=== PATIENT | female | born 1990 | race Hispanic/Latino ===

== ENCOUNTER 2017-03-29 15:31 | Emergency (ER) | payer BC, OTHER ==
[2017-03-29 11:35] VITALS: BMI 38.7
--- NOTE | 2017-03-29 17:04 | OBHP ---
Datetime: 03/29/2017 16:59 IP Adm Impression: , intrauterine ; No Active Labor IP Admit Plan: Observation/Evaluation; Discharge home Admit Comment, IP Provider: The patient is a 26-year-old 1 para 0 estimated due date 017 estimated gestational age 31 weeks patient presents to [facility] patient states she had blood in her urine and she passed a kidney stone. Patient states that similar [facility] was instructed to follow [facility] urolog[facility]. Patient states that appointment today and while voiding she feels she passed a stone ronnell uld call the urologist was referred to the hospital. Patient denies any pain and uterine cramps any v aginal bleeding patient states she feels well she reports good movement no leakage of fluid Past medical history none Past surgical history none Allergic to Demerol and morphine Social history denies alcohol tobacco use care by Dr. Montero Review of systems patient denies headache chest pain shortness of breath palpitations nausea vomit ing diarrhea vaginal bleeding. Cold intolerance easy bruisability musculoskeletal or neurological com plaints Vital signs stable afebrile Physical exam see notes Intrauterine at 31 weeks Status post passage of kidney stone Patient advised to follow-up with Dr. Montero this week Patient advised to reschedule urology appointment labor precautions provided Pelvic Type - PN: Adequate Extremities - PN: Normal Abdomen - PN: Normal Back - PN: Normal Breast - PN: Normal Lungs - PN: Normal Heart - PN: Normal Thyroid - PN: Normal Neurologic - PN: Normal HEENT - PN: Normal General - PN: Normal FHR - Baseline A Provider: 145 Gestation - Est Wks by US: 31.0 Pool Provider: Negative Vital Signs Provider: Reviewed IP Chief Complaint: Maternal discomfort; Other NICHD Accel Fetus A IP Provider: 10X10 FHR Category Provider Fetus A: Category I NICHD Decel Fetus A IP Provider: None Dilatation, Provider: 0 Effacement, Provider: 0 Station, Provider: 0 Genitourinary Exam: Normal DTRs - PN: Normal
[2017-03-29 21:44] VITALS: BP 102/60; PULSE 74
== END 2017-03-29 17:44 | disposition home or self-care (01) ==
LOC: H.EROB2 15:31 → H.EROB 16:11 → H.EROB2 17:44
DX: O99.89 Other specified diseases and conditions complicating pregnancy, childbirth and the puerperium (principal); R31.9 Hematuria, unspecified; Z87.442 Personal history of urinary calculi; Z3A.31 31 weeks gestation of pregnancy

== ENCOUNTER 2017-04-22 21:06 | Emergency (ER) | payer BC, OTHER ==
[2017-04-19 18:09] VITALS: BMI 38.9
[2017-04-22 23:07] LABS: RBC URINE 11 /hpf (0-3); URINE BILIRUBIN NEGATIVE (NEGATIVE); URINE BLOOD MODERATE (NEGATIVE); URINE COLOR STRAW (YELLOW); URINE GLUCOSE (UA) NEG (Normal); URINE KETONE NEGATIVE (NEGATIVE); URINE LEUKOCYTE ESTERASE NEG Leu/uL (Negative); URINE PROTEIN NEGATIVE (NEGATIVE); URINE UROBILINOGEN 0.2-1.0 mg/dL (0.2-1.0); WBC URINE < 1 /hpf (0-5)
[2017-04-22] MEDS ORDERED: Oxycodone/Acetaminophen 5/325 mg Tab PO ONE (23:46)
[2017-04-23 06:06] VITALS: BP 136/84; PULSE 81; RESP 20; TEMP 98.5
--- NOTE | 2017-04-23 09:06 | OBHP ---
Datetime: 04/22/2017 22:00 IP Adm Impression: , intrauterine ; No Active Labor; Intact Membranes IP Chief Complaint Other: left back pain; groin pain since 19:30pm IP Admit Plan: Observation/Evaluation Admit Comment, IP Provider: 26yo G 2P0 IUP at 34w6d c/o left back pain since 19:30pm starting in tino k and going to left groin. on and off. No meds taken. No SROM. No VB; +FM PNC: chart rev'd; came last week for betamethasone shots (AC growth/low fluid) PNC Dr Balaji Montero PMH: Hx kidney stones PSH: laser for stone Allergy: Demeraol PSOH: denies smokin ETOH drugs A: IUP at 34w not in labor back pain/groin pain ? musculao-skeletal pain PLAN: check UA contact RP - left msg Pelvic Type - PN: Adequate Abdomen - PN: Normal Back - PN: Normal Neurologic - PN: Normal HEENT - PN: Normal General - PN: Normal FHR - Baseline A Provider: 140 Membranes, Provider: Intact Contraction Comments Provider: 0 Comments, ACOG Physical Exam: Back no CVAtenderness; just some tenderness deep palpation lumbar musc les left side Pool Provider: Negative IP Hx Assessment: The History has been Reviewed and is Current EGA AdmitDate IP: 34.6 Vital Signs Provider: Reviewed; Within Normal Limits IP Chief Complaint: Other NICHD Variability Prov Fetus A: Moderate 6-25bpm NICHD Accel Fetus A IP Provider: 15X15 FHR Category Provider Fetus A: Category I NICHD Decel Fetus A IP Provider: None Dilatation, Provider: 0 Effacement, Provider: 0 Genitourinary Exam: Normal
--- NOTE | 2017-04-23 09:08 | OBDCSUM ---
Datetime: 04/22/2017 23:55 Discharged to, Provider: Home Follow up at, Provider: Disch Instr Activity: Normal activity Disch Instr Diet: Regular Discharge Time: 04/22/2017 23:55 Follow up in weeks, Provider: Monday04/25/2017 Disch Referrals: None Disch Activity Restrictions: No lifting Discharge Comment, Provider: Dr Montero ordered for Percoset and discharge...script given to pt. Discharge Diagnosis Prov Other: Kidney stone
== END 2017-04-22 23:55 | disposition home or self-care (01) ==
LOC: H.EROB2 21:06
DX: O26.93 Pregnancy related conditions, unspecified, third trimester (principal); M54.9 Dorsalgia, unspecified; R10.2 Pelvic and perineal pain; O47.03 False labor before 37 completed weeks of gestation, third trimester; Z3A.34 34 weeks gestation of pregnancy

== ENCOUNTER 2017-05-21 13:28 | Inpatient (IN) | payer BC, OTHER ==
[2017-04-27 10:38] VITALS: BMI 38.9
--- NOTE | 2017-05-21 14:36 | OBADHP ---
Datetime: 05/21/2017 14:25 Admit Comment, IP Provider: 26yo with IUP at 39wks presenting here today for IOL. She denies an y VB or LOF. She was informed the fluid around baby is reduced. She however has been feeling mo vements. TOCO- Occasional, FHR- Category 1, Cx- 1/40/-2, Presentation- cephalic- confirmed with a limited b edside ultrasound. Assessment: IUP at 39wks NST- Reactive. Plan as Per Dr Montero:(Contacted by phone) Admit to LND. For cervical Ripening with cervidil Monitor Progress of Labor Presentation-Admit: Vertex FHR - Baseline A Provider: 150 Membranes, Provider: Intact Contraction Comments Provider: occasional Comments, ACOG Physical Exam: Abd: Soft,BS- Present Gestation - Est Wks by US: 39.0 Vital Signs Provider: Reviewed IP Chief Complaint: Scheduled induction of labor NICHD Variability Prov Fetus A: Moderate 6-25bpm NICHD Accel Fetus A IP Provider: 15X15 FHR Category Provider Fetus A: Category I Dilatation, Provider: 1 Effacement, Provider: 40 Station, Provider: -2 EGA AdmitDate IP: 39.0 IP Adm Impression: Term, intrauterine ; No Active Labor IP Admit Plan: Admit to unit; Initiate labor induction protocol Datetime: 04/22/2017 22:00 IP Chief Complaint Other: left back pain; groin pain since 19:30pm Pelvic Type - PN: Adequate Abdomen - PN: Normal Back - PN: Normal Neurologic - PN: Normal HEENT - PN: Normal General - PN: Normal Pool Provider: Negative IP Hx Assessment: The History has been Reviewed and is Current NICHD Decel Fetus A IP Provider: None Genitourinary Exam: Normal Datetime: 04/18/2017 15:41 Lungs - PN: Normal Heart - PN: Normal (Annotations: Data stored by [facility] on behalf of user) Datetime: 03/29/2017 16:59 Extremities - PN: Normal Breast - PN: Normal Thyroid - PN: Normal DTRs - PN: Normal
[2017-05-21] MEDS: Lactated Ringer's 1,000 ML IV SCH ×2 (14:45→23:50)
[2017-05-21 15:34] LABS: BASO % 0.4 % (0.0-2.0); EOS % 0.4 % (0.0-4.0); HEMATOCRIT 36.3 % (34.0-47.0); LYMPH # 2.2 K/uL (1.0-4.3); LYMPH % 16.6 % (20.0-40.0); MEAN CELL VOLUME 89.2 fl (81.0-99.0); MEAN CORPUSCULAR HEMOGLOBIN 29.7 pg (27.0-31.0); MEAN CORPUSCULAR HGB CONC 33.3 g/dL (33.0-37.0); MEAN PLATELET VOLUME 7.6 fl (7.2-11.7); MONO # 0.9 K/uL (0.0-0.8); MONO % 6.6 % (0.0-10.0); NEUT # 10.1 K/uL (1.8-7.0); RED CELL DISTRIBUTION WIDTH 13.9 % (11.5-14.5); WHITE BLOOD COUNT 13.2 K/uL (4.8-10.8)
[2017-05-21 15:49] LABS: BLOOD UREA NITROGEN 11 mg/dl (7-17); CALCIUM 9.3 mg/dL (8.4-10.2); CARBON DIOXIDE 21 mmol/L (22-30); CHLORIDE 108 mmol/L (98-107); GFR AFRICAN-AMERICAN > 60; GLUCOSE,RANDOM 86 mg/dL (65-105); POTASSIUM 3.6 MMOL/L (3.6-5.0); SODIUM 138 mmol/l (132-148)
[2017-05-21 15:53] LABS: RBC URINE 461 /hpf (0-3); URINE BACTERIA OCC (<OCC); URINE BILIRUBIN NEGATIVE (NEGATIVE); URINE BLOOD LARGE (NEGATIVE); URINE COLOR YELLOW (YELLOW); URINE GLUCOSE (UA) NEG (Normal); URINE KETONE NEGATIVE (NEGATIVE); URINE LEUKOCYTE ESTERASE TRACE Leu/uL (Negative); URINE PROTEIN 30 mg/dL (NEGATIVE); URINE UROBILINOGEN 0.2-1.0 mg/dL (0.2-1.0); WBC URINE 8 /hpf (0-5)
[2017-05-22] MEDS: Lactated Ringer's 1,000 ML IV SCH ×4 (01:00→05:30)
[2017-05-22] MEDS ORDERED: Oxytocin 30 UNITS in Sodium Chloride 0.9% 500 ML IV ONE ×2 (01:54→04:30)
[2017-05-22] MEDS ORDERED: ePHEDrine 50 mg/ml Inj ONE (02:45)
[2017-05-22] MEDS ORDERED: ceFAZolin 2 GM in Sodium Chloride 0.9% 100 ML IVPB ONE (02:53)
[2017-05-22] MEDS ORDERED: ceFAZolin IV 2 gm in Dextrose 2 GM/50 ML BAG IVPB ONE (02:54)
[2017-05-22] MEDS ORDERED: Phenylephrine 10 mg/ml Inj ONE (03:03)
[2017-05-22] MEDS ORDERED: Midazolam 2 MG/2 ML VIAL ONE (03:12)
[2017-05-22] MEDS ORDERED: Cellulose Hemostat 2X3 Sheet ONE (03:29)
[2017-05-22] MEDS ORDERED: DiphenhydrAMINE 50 mg/ml Inj IVP PRN ×2 (03:38→06:54)
[2017-05-22] MEDS ORDERED: Naloxone 0.4 mg/ml Inj (Adult) IVP PRN ×2 (03:38→06:54)
--- NOTE | 2017-05-22 04:02 | OBDS ---
DELIVERY PERSONNEL Delivery Doctor: Gilberto Montero MD Anesthesiologist: Kathy Hogue MD MATERNAL INFORMATION Provider Comments: pltcs placenta abruption live male inant 9,9 weigh tof 2965 grams ebl 800 ml pediatrical present for delivery. normal appearing uteurs, tubes and ovaries b/l LABOR SUMMARY EDC: 05/28/2017 00:00 No. Babies in Womb: 1 Attempted: No LABOR INFORMATION Reason for Induction: Oligohydramnios Cervical Ripening Agents: Cervidil repains intact vaginally Group B Beta Strep: Negative Steroids Given: Full Course (Annotations: Data stored by [facility] on behalf of user) MEMBRANES Membranes Rupture Method: Spontaneous Amniotic Fluid Color: Clear Amniotic Fluid Amount: Small Amniotic Fluid Odor: Normal STAGES OF LABOR Stage 3 hrs: 0 Stage 3 min: 1 BABY A INFORMATION Delivery Date/Time: 05/22/2017 03:11 Method of Delivery: Born in Route : No : N/A Forceps: N/A Vacuum Extraction: N/A Shoulder Dystocia : No SHOULDER DYSTOCIA BABY A Infant Delivery Date/Time: 05/22/2017 03:11 PRESENTATION/POSITION BABY A Presentation: Cephalic Cephalic Presentation: Vertex PLACENTA INFORMATION BABY A Placenta Delivery Time : 05/22/2017 03:12 Placenta Method of Delivery: Manual Removal Placenta Status: Delivered SCORES BABY A Heart Rate 1 min: >100 bpm Resp Effort 1 min: Good Cry Reflex Irritability 1 min: Cough or Sneeze or Pulls Away Muscle Tone 1 min: Active Motion Color 1 min: Body [place], Extremities Blue Resuscitation Effort 1 min: N/A SCORE 1 MIN: 9 Heart Rate 5 min: >100 bpm Resp Effort 5 min: Good Cry Reflex Irritability 5 min: Cough or Sneeze or Pulls Away Muscle Tone 5 min: Active Motion Color 5 min: Body [place], Extremities Blue Resuscitation Effort 5 min: N/A SCORE 5 MIN: 9 INFANT INFORMATION BABY A Gestational Age at Delivery: 39.1 Gestational Status: Term Infant Outcome : Liveborn Condition : Stable Infant Sex: Male IDENTIFICATION/MEDS BABY A ID Band Number: [id number] ID Band Location: Left Leg; Left Arm WEIGHT/LENGTH BABY A Infant Birthweight (gms): 2965 Infant Weight (lb): 6 Weight (oz): 9 CORD INFORMATION BABY A Infant Suction: Mouth; Nose ASSESSMENT BABY A Complications: Oligohydramnios Physical Findings at Delivery: Within Normal Limits Respirations: Appears Normal Social Science Analyst/ALS Called : No Infant Care By: Delores SALEEM/Dr. Dailey Transferred To: Nursery
--- NOTE | 2017-05-22 04:05 | OBPN ---
Datetime: 05/22/2017 04:01 IP Progress Impression: Non-reassuring heart rate IP Informed Consent Obtain: Section Delivery IP Progress Plan: Deliver- Section IP Progress Note Comment: pt seen and examined post epidrual with non reassuring heart tracing s/p epdural VS 90/36 s/p ephedrne with vagnal bleeding 4cm nrfht non improved with ressuction and plcental aburitpon r/b/a/i of pltc d/w patieth consent obtained transferred to or Datetime: 05/21/2017 14:25 Membranes, Provider: Intact Contraction Comments Provider: occasional FHR - Baseline A Provider: 150 Gestation - Est Wks by US: 39.0 Presentation-Admit: Vertex Vital Signs Provider: Reviewed NICHD Accel Fetus A IP Provider: 15X15 FHR Category Provider Fetus A: Category I NICHD Variability Prov Fetus A: Moderate 6-25bpm Dilatation, Provider: 1 Effacement, Provider: 40 Station, Provider: -2 Datetime: 04/22/2017 22:00 Pool Provider: Negative NICHD Decel Fetus A IP Provider: None
--- NOTE | 2017-05-22 04:09 | PCM.SURG1 ---
Surgeon's Initial Post Op Note - Surgeon's Notes Surgeon: Patito Montero MD Rn Hematology: Ok Sumner MD Type of Anesthesia: Other Pre-Operative Diagnosis: Non reassuring heart tracing, placenta aburption , term intrauterine Operative Findings: live male infant cephalic presentaion, loopos of cord near presentation, normal appearing utuer, tubel and ovaries bilaterally, apgars 9,9 weigh toof 2965 grams. Boggy utuer post delivery, pitocin adn methergein gfiven with firm, good hemostaiss. Dr Ok Alex was surigcal assistant county attorney and essential in gaining entry, retraction, epxousre, holding bladder blade, delvieng infnat, cloisgn all labyers, obtainign hemostis and was present for entire case Post-Operative Diagnosis: same as above Operation Performed: Primary Low transverse Cesearean section Specimen/Specimens Removed: placenta Estimated Blood Loss: EBL {In ML}: 800 Blood Products Given: N/A Drains Used: No Drains Post-Op Condition: Good Date of Surgery/Procedure: 05/22/17 Time of Surgery/Procedure: 03:00
[2017-05-22] MEDS ORDERED: Bisacodyl 5mg EC Tab PO PRN ×2 (04:10→06:54)
[2017-05-22] MEDS ORDERED: Oxycodone/Acetaminophen 5/325 mg Tab PO PRN ×3 (04:10→06:54)
[2017-05-22 05:58] LABS: BASO # 0.1 K/uL (0.0-0.2); BASO % 0.3 % (0.0-2.0); HEMATOCRIT 31.8 % (34.0-47.0); LYMPH # 1.4 K/uL (1.0-4.3); LYMPH % 7.4 % (20.0-40.0); MEAN CELL VOLUME 88.7 fl (81.0-99.0); MEAN CORPUSCULAR HEMOGLOBIN 29.4 pg (27.0-31.0); MEAN CORPUSCULAR HGB CONC 33.2 g/dL (33.0-37.0); MEAN PLATELET VOLUME 7.5 fl (7.2-11.7); MONO # 0.8 K/uL (0.0-0.8); NEUT # 16.6 K/uL (1.8-7.0); NEUT % 88.3 % (50.0-75.0); PLATELET COUNT 224 K/uL (130-400); RED CELL DISTRIBUTION WIDTH 14.2 % (11.5-14.5); WHITE BLOOD COUNT 18.9 K/uL (4.8-10.8)
[2017-05-22 06:05] LABS: ALB/GLOB RATIO 0.9 (1.0-2.1); ALKALINE PHOSPHATASE 167 U/L (38-126); ALT/SGPT 32 U/L (9-52); AST/SGOT 20 U/L (14-36); BILIRUBIN,TOTAL 0.3 mg/dl (0.2-1.3); BLOOD UREA NITROGEN 6 mg/dl (7-17); CALCIUM 8.5 mg/dL (8.4-10.2); CARBON DIOXIDE 23 mmol/L (22-30); CHLORIDE 109 mmol/L (98-107); GFR AFRICAN-AMERICAN > 60; GLUCOSE,RANDOM 112 mg/dL (65-105); POTASSIUM 3.6 MMOL/L (3.6-5.0); SODIUM 137 mmol/l (132-148)
[2017-05-22] MEDS ORDERED: Lactated Ringer's 1,000 ML IV SCH (06:54)
[2017-05-22] MEDS ORDERED: Multivitamin With Minerals Tab PO SCH (09:00)
[2017-05-22] MEDS ORDERED: Simethicone 80 mg Chewtab PO SCH (10:00)
[2017-05-22] MEDS ORDERED: ceFAZolin 1 GM in Sodium Chloride 0.9% 100 ML IVPB SCH (10:00)
[2017-05-22] MEDS: ceFAZolin 1 GM in Sodium Chloride 0.9% 100 ML IVPB SCH ×2 (10:30→21:00)
[2017-05-22 11:23] LABS: NEUTROPHIL 89 % (42-75); TOTAL CELLS COUNTED 100
[2017-05-22] MEDS: Multivitamin With Minerals Tab PO SCH (11:57)
[2017-05-22] MEDS: Simethicone 80 mg Chewtab PO SCH ×3 (11:57→21:55)
[2017-05-22] MEDS: Oxycodone/Acetaminophen 5/325 mg Tab PO PRN (17:54)
[2017-05-23] MEDS: Oxycodone/Acetaminophen 5/325 mg Tab PO PRN ×3 (00:38→10:46)
[2017-05-23] MEDS: Simethicone 80 mg Chewtab PO SCH ×4 (04:16→21:46)
[2017-05-23 06:00] LABS: BASO # 0.1 K/uL (0.0-0.2); BASO % 0.7 % (0.0-2.0); EOS % 0.3 % (0.0-4.0); HEMATOCRIT 30.6 % (34.0-47.0); LYMPH # 2.7 K/uL (1.0-4.3); LYMPH % 17.6 % (20.0-40.0); MEAN CELL VOLUME 89.2 fl (81.0-99.0); MEAN CORPUSCULAR HEMOGLOBIN 29.1 pg (27.0-31.0); MEAN CORPUSCULAR HGB CONC 32.6 g/dL (33.0-37.0); MONO # 0.9 K/uL (0.0-0.8); MONO % 5.8 % (0.0-10.0); NEUT # 11.7 K/uL (1.8-7.0); NEUT % 75.6 % (50.0-75.0); NRBC % 0.1 % (0.0-0.0); RED CELL DISTRIBUTION WIDTH 14.5 % (11.5-14.5); WHITE BLOOD COUNT 15.4 K/uL (4.8-10.8)
[2017-05-23 06:09] LABS: ALB/GLOB RATIO 0.9 (1.0-2.1); ALKALINE PHOSPHATASE 137 U/L (38-126); ALT/SGPT 33 U/L (9-52); AST/SGOT 33 U/L (14-36); BILIRUBIN,TOTAL 0.3 mg/dl (0.2-1.3); BLOOD UREA NITROGEN 7 mg/dl (7-17); CALCIUM 8.8 mg/dL (8.4-10.2); CARBON DIOXIDE 27 mmol/L (22-30); CHLORIDE 106 mmol/L (98-107); GFR AFRICAN-AMERICAN > 60; GLUCOSE,RANDOM 110 mg/dL (65-105); POTASSIUM 3.7 MMOL/L (3.6-5.0); SODIUM 139 mmol/l (132-148); TOTAL PROTEIN 6.3 G/DL (6.3-8.2)
[2017-05-23] MEDS: Multivitamin With Minerals Tab PO SCH (08:21)
--- NOTE | 2017-05-23 15:42 | OBPPN ---
Datetime: 05/23/2017 15:40 PP Pain Prov: Within normal limits PP Nausea Prov: Denies PP Flatus Prov: Yes PP BM Prov: No PP Breasts Prov: Normal PP Heart Prov: Normal PP Lungs Prov: Normal PP Abdomen/Uterus Prov: Normal PP Lochia Prov: Normal PP Vulva/Perineum Prov: Normal PP CVA Tenderness Prov: Normal PP Extremities Prov: Normal PP C/S Incision Prov: Normal PP Progress Prov: Normal PP Comments Phys Exam Prov: Abd: soft, approprately ttp near incision, no guarding, no reboudn tende nres, no rigidty, +BS incsion c/d/i no uterine tendneres minimal lohai, non fuol selmming ext no calf tendnerse, negative homans sign PP Impression Prov: Normal progression PP Plan Prov: Continue present management PP Progress Note Prov: pt seen adn examined adn reports pain controlled with medication, pt ambuatin g, voiding, passing flatus, tolerating regualr diet, breaset and bottle feeding, denies any fver, chi ls, nause, vomiting, cp sob VSS PE see above A/{ /p s/p PLTCS POD #1 doign well -cont current managmnet -pain managmnet -regulra diet -ecnouarge ambuationg/ breast feeding -incenstive spirometer/ abodminal binder -f/u cbc Vital Signs Provider PP: Reviewed; Within Normal Limits
[2017-05-24] MEDS: Oxycodone/Acetaminophen 5/325 mg Tab PO PRN (03:26)
[2017-05-24] MEDS: Simethicone 80 mg Chewtab PO SCH ×4 (04:47→21:06)
[2017-05-24] MEDS: Multivitamin With Minerals Tab PO SCH (08:33)
[2017-05-25] MEDS: Simethicone 80 mg Chewtab PO SCH ×2 (04:42→09:17)
--- NOTE | 2017-05-25 07:36 | OBDCSUM ---
Datetime: 05/25/2017 07:35 Discharged to, Provider: Home Follow up at, Provider: dR Abebe Disch Instr Activity: Normal activity Disch Instr Diet: Regular Discharge Instructions, Provider: Routine instructions given Discharge Diagnosis, Provider: Term Delivered Discharge Time: 05/25/2017 07:35 Follow up in weeks, Provider: 1 WEEKS Disch Referrals: None Contraception discussed, Prov: Yes Disch Activity Restrictions: No sexual activity; Nothing in vagina - [place], tampons, douche Discharge Comment, Provider: IF FEVER >100.4 HEAVY BLEEDING MORE THAN 2 PADS/ HOUR CALL Contraception after Delivery: Not Planning to Use
--- NOTE | 2017-05-25 07:36 | OBPPN ---
Datetime: 05/25/2017 07:33 PP Pain Prov: Within normal limits PP Nausea Prov: Denies PP Flatus Prov: Yes PP BM Prov: Yes PP Breasts Prov: Normal PP Heart Prov: Normal PP Lungs Prov: Normal PP Abdomen/Uterus Prov: Normal PP Lochia Prov: Normal PP Vulva/Perineum Prov: Normal PP CVA Tenderness Prov: Normal PP Extremities Prov: Normal PP C/S Incision Prov: Normal PP Progress Prov: Normal PP Comments Phys Exam Prov: INCISOCN C/D/I HEALING WELL PP Impression Prov: Normal progression PP Plan Prov: Continue present management; Discharge PP Progress Note Prov: PT SEEN AND EXAMINED REPORTS PAIN CONTROLLED IWHT MEDICATION, PT AMBUATLING, VOIDGN PASSING FLATUS, TOLERATING REGULAR DIET AND DENIES ANY CP, SOB vss pE SEE ABOVE A/P S/P pltcs pod #3 DOING WELL -DC HOME -RTO 1 WEEK INCISION CHECK -PRECUATN GIVEN Vital Signs Provider PP: Reviewed; Within Normal Limits
[2017-05-25] MEDS: Multivitamin With Minerals Tab PO SCH (09:16)
--- NOTE | 2017-05-25 14:48 | OP ---
PROCEDURE DATE: 05/22/2017 PREOPERATIVE DIAGNOSES: Nonreassuring heart tracing, placental abruption, term intrauterine . POSTOPERATIVE DIAGNOSES: Nonreassuring heart tracing, placental abruption, term intrauterine . SURGEON: Patito Montero MD. MARINE WATER TENDER: Ok Alex MD. TYPE OF ANESTHESIA: Epidural. OPERATIVE FINDINGS: A live male , cephalic presentation, presentation. Normal-appearing uterus, tubes, and ovaries bilaterally. Apgars 9 and 9, weight of 2955 g. Boggy uterus, post delivery Pitocin and Methergine given with firm uterus. Good hemostasis. Dr. Ok Alex was ophthalmic surgical assistant, essential in gaining entry, retraction, exposure, holding the bladder blade, helping to deliver the , closing all layers, and obtaining hemostasis and was present for the entire case. OPERATION PERFORMED: Primary low transverse section. SPECIMEN REMOVED: Placenta. ESTIMATED BLOOD LOSS: 800 mL. BLOOD PRODUCTS: None. COMPLICATIONS: None. DRAINS: None. DESCRIPTION OF PROCEDURE: The patient was taken to the operating room, where she was given epidural anesthesia. Once found to be adequate, she was positioned on the operating table in the dorsal supine position. The patient was then prepped and draped in the usual sterile fashion. A time-out was confirmed correct patient and correct procedure. The patient was given preoperative prophylactic antibiotics. A Pfannenstiel skin incision was made with the scalpel and carried in line to the underlying fascia with Bovie. The fascia was incised in midline and the incision was extended laterally with the Bovie. The superior aspect of the fascial incision was grasped, elevated with Markus clamps, and the underlying rectus muscles were dissected off bluntly. Attention was then turned to the inferior aspect of the incision, which in a similar fashion was grasped with Markus clamps, and the underlying rectus muscles were dissected off bluntly. The rectus muscle was then bluntly in the midline. The peritoneum identified and a clear space witnessed. Incision was extended laterally on the patient until there was good visualization of the bladder. The lower end of the [place] was then inserted and the vesicouterine peritoneum was incised with the Metzenbaum scissors and the incision was extended laterally. The bladder flap was created digitally and the lower end of the Nathaniel was then reinserted. The lower uterine segment was incised in a transverse fashion. The infant's head was then brought up through the incision carefully and the infant's head was delivered atraumatically followed by delivery of the shoulders followed by delivery of the body. Both oral and nasal passages of the baby were bulb suctioned. Umbilical cord was clamped and cut, and the baby was handed off to waiting assistant oceanographer. Cord blood and cord gases were collected and sent x2. The placenta was then delivered manually. The uterus was exteriorized and cleared off all clots and debris. The uterine incision was repaired with 0 Vicryl in a running continuous locked fashion. A second suture of the same was used to close the uterus in a running imbricating manner. There was good hemostasis at the uterine incision site. Methergine IM x1 was given and there was good hemostasis noted. There was normal tubes and ovaries bilaterally. The uterus was then returned to the abdomen and paracolic gutters were cleared off all clots and debris. The peritoneum was reapproximated and closed with 2-0 chromic in a running continuous fashion. The rectus was reapproximated and closed with 2-0 chromic in an interrupted manner. The fascia was reapproximated and closed with 0-Vicryl in a running continuous fashion. The subcutaneous space was closed with 2-0 plain in an interrupted manner and the skin was reapproximated and closed with 3-0 Monocryl in a running subcuticular fashion. At the end of the procedure, all needle, sponge, and instrument counts were noted to be correct x2. The patient tolerated the procedure well and was transferred to the recovery room in stable condition. Patito Montero MD
[2017-05-25 17:57] VITALS: BP 122/78; PULSE 97; RESP 20; TEMP 98; O2SAT 100
--- NOTE | 2017-05-26 08:42 | OP ---
DATE OF SURGERY: 05/22/2017 SURGEON: Patito Montero MD. RETAIL LOSS PREVENTION SPECIALIST: Ok Alex MD. TYPE OF ANESTHESIA: Epidural. PREOPERATIVE DIAGNOSES: Nonreassuring heart tracing, placental abruption, term intrauterine . POSTOPERATIVE DIAGNOSES: Nonreassuring heart tracing, placental abruption, term intrauterine . OPERATIVE FINDINGS: A live male infant, cephalic presentation, presentation. Normal-appearing uterus, tubes, and ovaries bilaterally. Apgars 9 and 9, weight of 2695 g. Boggy uterus. Post delivery, Pitocin and Methergine given with firm, good hemostasis. Dr. Ok Alex was the surgical dressing maker, essential in gaining entry, retraction, exposure, holding the bladder blade, delivering the , closing all layers, obtaining hemostasis and was present for the entire case. OPERATION PERFORMED: Primary low transverse section. SPECIMEN REMOVED: Placenta. ESTIMATED BLOOD LOSS: 800 mL. BLOOD PRODUCTS: None. COMPLICATIONS: None. DESCRIPTION OF PROCEDURE: The patient was taken to the operating room, where she had epidural anesthesia. Once found to be adequate, she was positioned on the operating table in the dorsal supine position. The patient was then prepped and draped in the usual sterile fashion. A time-out was performed, confirmed correct patient and correct procedure. The patient was given preoperative prophylactic antibiotics. A Pfannenstiel skin incision was made with the scalpel and carried in line to the underlying layer of fascia. The fascia was incised in midline. The incision was extended laterally with the Anderson scissors. The superior aspect of the fascial incision was grasped, elevated with Markus clamps, and the underlying rectus muscles were dissected off bluntly using Anderson scissors. In similar fashion, the inferior aspect of the fascial incision was grasped with Markus clamps and the underlying muscles were dissected off bluntly. The rectus muscle was then bluntly in the midline. The peritoneum identified. The clear space incision was extended laterally on the patient until there was good visualization of the bladder. The lower end of the [place] was then reinserted and the vesicouterine peritoneum was incised in a transverse fashion. The bladder flap was created digitally. The lower end of the [place] was then reinserted. The lower uterine segment was incised in a transverse fashion. The uterine incision was extended laterally bluntly following this. The surgeon's hand entered the uterine cavity, which there was cord noted, the 's head was brought up to the uterine incision. The infant's head was delivered atraumatically, followed by delivery of the shoulders, followed by delivery of the body. Both oral and nasal passages of the baby were bulb suctioned. Umbilical cord was clamped and cut. The baby was handed off to awaiting sort worker. Cord blood and cord gases were collected and sent x2. The placenta was then delivered manually. The uterus was exteriorized and cleared off all clots and debris. The uterine incision was repaired with 0 Vicryl in a running continuous locked fashion. A second layer of same suture was used to close the uterus in a running imbricating manner following this. There was good hemostasis at the uterine incision site. There was normal tubes and ovaries bilaterally. The uterus was then returned to the abdomen. Paracolic gutters were cleared off all clots and debris. The peritoneum was re-approximated with 2-0 chromic in a running continuous fashion. The rectus was re-approximated and closed with 2-0 chromic in an interrupted manner. The fascia was re-approximated and closed with 0-Vicryl in a running continuous fashion. The subcutaneous space was closed with 2-0 plain in an interrupted manner and the skin was reapproximated and closed with 4-0 Monocryl in a running subcuticular fashion. At the end of the procedure, all needle, sponge, and instrument counts were noted to be correct x2. The patient tolerated the procedure well and was transferred to the recovery room in stable condition. Patito Montero MD
== END 2017-05-25 13:30 | disposition home or self-care (01) | DRG 765 ==
LOC: H.EROB2 13:28 → H.L&D 14:15 → H.OB/GYN 05-22 06:30
PROVIDERS: ADMIT Obstetrics & Gynecology; ATTEND Obstetrics & Gynecology
PROC: 10D00Z1 Extraction of Products of Conception, Low, Open Approach (ICD-10-PCS; principal; 2017-05-22)
PROC: 4A1HXCZ Monitoring of Products of Conception, Cardiac Rate, External Approach (ICD-10-PCS; 2017-05-22)
DX: O45.8X3 Other premature separation of placenta, third trimester (principal); O41.03X0 Oligohydramnios, third trimester, not applicable or unspecified; Z37.0 Single live birth; O76 Abnormality in fetal heart rate and rhythm complicating labor and delivery; N85.8 Other specified noninflammatory disorders of uterus; Z3A.39 39 weeks gestation of pregnancy; Z88.6 Allergy status to analgesic agent